=== PATIENT | female | born 1965 | race Caucasian/White ===

== ENCOUNTER 2016-10-08 12:09 | Emergency (ER) | payer BC ==
[2016-10-08] MEDS ORDERED: OPTIRAY 350 100 ML VIAL HMH IV ONE (12:10)
== END 2016-10-08 21:12 | disposition home or self-care (01) ==
LOC: ER 12:09
DX: R10.31 Right lower quadrant pain (principal); R10.32 Left lower quadrant pain
CPT/HCPCS: 36415; 74177; 76830; 80053; 81003; 83690; 84703; 85025; 87491; 87591; 87800